=== PATIENT | male | born 1985 | race Caucasian/White ===

== ENCOUNTER 2022-08-30 18:35 | Emergency (ER) | payer SELFPAY ==
[~2022-08-30] VITALS: Ht 172.7 cm; Wt 70.3 kg
--- NOTE | 2022-08-30 18:35 | NUR ---
Pt brought by self, A&Ox4, pt brought by PD for medical clearance, pt denies any symptoms, current BS 101, VSS, skin pink and warm,cap refill <3, will cont to monitor.
--- NOTE | 2022-08-30 18:38 | NUR ---
Dr Centeno evaluating patient in the hallway
[2022-08-30 18:46] VITALS: BP_SYST 145
[2022-08-30 18:50] VITALS: BP_SYST 145
--- NOTE | 2022-08-30 18:51 | NUR ---
Patient given written and verbal discharge instructions and verbalizes understanding. ER MD discussed with patient the results and treatment provided. Patient in stable condition. ID arm band removed. NO Rx given. Patient educated on pain management and to follow up with PMD. Pain Scale 0/10. Opportunity for questions provided and answered. Medication side effect fact sheet provided.
== END 2022-08-30 18:50 ==
LOC: EDSEX 18:35 → SED 18:35
DX: Z02.89 Encounter for other administrative examinations (principal); E10.9 Type 1 diabetes mellitus without complications; Z79.899 Other long term (current) drug therapy
CPT/HCPCS: 99283